=== PATIENT | male | born 1995 | race Caucasian/White ===

== ENCOUNTER 2019-01-24 14:44 | Emergency (ER) | payer BC, MEDICAID ==
[2019-01-24 14:54] VITALS: BP 122/91
--- NOTE | 2019-01-24 15:15 | EDPHY ---
H & P Time Seen by Provider: 01/24/19 14:58 HPI/ROS: This patient reports illness over the past 2 days with dry coughing, coryza, myalgias, fevers. This morning he had nausea vomiting in addition. Explains he had mild to moderate nausea and then also gagging from hacking cough triggered vomiting this morning. Since then he has been able tolerate p.o. Fluids and crackers without vomiting. He is accompanied by his mother who drove here by private vehicle for evaluation. ROS: Constitutional: Fevers HEENT: Minimal sore throat. No odynophagia Pulmonary: No hemoptysis. No shortness of breath. Cardiovascular: No lightheadedness or chest pain GI: No abdominal pain. No diarrhea. : No complaints Integumentary: No rash 7 point review of symptoms is performed and otherwise negative with exception of pertinent positives and negatives listed in HPI and ROS Smoking Status: Heavy smoker Physical Exam: Physical Exam Vital signs are normal. General: No acute distress HEENT: Nose: Clear discharge bilaterally. No sinus tenderness to percussion. Ears: External canals and tympanic membranes are clear with no erythema or abnormal findings bilaterally. Oropharynx: Mild erythema. No exudates. No dysphonia. No drooling or stridor. Eyes: Pupils equal and react to light. Extraocular motions are intact. Neck: Supple with no meningismus. No lymphadenopathy Lungs: Clear to auscultation bilaterally with no rales, rhonchi or wheeze. No respiratory distress. Positive dry cough Cardiac: Regular rate and rhythm with no murmur gallop or rub Skin: No rash or pallor. Neuro: Alert with no focal deficits noted. Initial differential diagnosis: Influenza, acute bronchitis, URI with cough Constitutional: Initial Vital Signs Temperature (C) 37.5 C 01/24/19 14:52 Heart Rate 90 01/24/19 14:52 Respiratory Rate 16 01/24/19 14:52 Blood Pressure 122/91 H 01/24/19 14:52 O2 Sat (%) 96 01/24/19 14:52 O2 Delivery Mode Room Air Allergies/Adverse Reactions: No Known Allergies Allergy (Verified 01/24/19 14:54) Home Medications: Medication Instructions Recorded Benzonatate [Tessalon Pearles (RX)] 100 - 200 mg PO TID PRN #20 cap 01/24/19 Ondansetron Odt [Zofran Odt] 4 - 8 mg PO Q4PRN PRN #4 tab 01/24/19 Oseltamivir Phosphate [Tamiflu] 75 mg PO BID #10 capsule 01/24/19 MDM/Departure - MDM Diagnostics: POC influenza is positive for influenza A ED Course/Re-evaluation: I counseled this patient regarding influenza. He is stable with no evidence of sepsis or other red flag findings. - Depart Disposition: Home, Routine, Self-Care Clinical Impression: Influenza A Condition: Good Instructions: Influenza (ED) Additional Instructions: Diagnosis: Influenza A Plan: Humidifier Ibuprofen Tylenol Tamiflu Zofran for nausea vomiting if needed No work until he fevers resolved for 24 hr or more Return if he have shortness of breath, uncontrolled vomiting despite Zofran or other concerns Stand Alone Forms: Work Excuse Prescriptions: Benzonatate [Tessalon Pearles (RX)] 100 - 200 mg PO TID PRN #20 cap PRN Reason: cough Ondansetron Odt [Zofran Odt] 4 - 8 mg PO Q4PRN PRN #4 tab PRN Reason: Vomiting Oseltamivir Phosphate [Tamiflu] 75 mg PO BID #10 capsule Referrals: Acosta Torres DO [Primary Care Provider] - As per Instructions
== END 2019-01-24 15:36 | disposition home or self-care (01) ==
LOC: CED 14:44
DX: J10.1 Influenza due to other identified influenza virus with other respiratory manifestations (principal); F17.200 Nicotine dependence, unspecified, uncomplicated
CPT/HCPCS: 87400-QW-ER; 99284-ER

== ENCOUNTER → 2019-02-12 | Outpatient (CLI) | payer MEDICAID | LOC: CIMAGING 11:28 | PROVIDERS: ATTEND Family Medicine | DX: R05 Cough (principal); F17.200 Nicotine dependence, unspecified, uncomplicated | CPT/HCPCS: 71046-PO ==